=== PATIENT | male | born 1970 | race Caucasian/White ===

== ENCOUNTER → 2017-10-26 | Outpatient (CLI) | payer OTHER ==
[~2017-10-26] MED LIST: ASPIRIN81 M1 PO; CARAFATE1 G1 PO; IBU-8800 MG PO; INDERAL80 MG PO; LISINOPRIL/HCTZ1 TA3 PO; PREVACID15 MG PO; PROTONIX40 MG PO
== END | disposition home or self-care (01) ==
LOC: CT 08:00
DX: K40.90 Unilateral inguinal hernia, without obstruction or gangrene, not specified as recurrent (principal)

== ENCOUNTER → 2017-12-21 | Outpatient (CLI) | payer OTHER | END | disposition home or self-care (01) | LOC: LAB 07:57 → US 08:30 | DX: M05.741 Rheumatoid arthritis with rheumatoid factor of right hand without organ or systems involvement (principal); M05.742 Rheumatoid arthritis with rheumatoid factor of left hand without organ or systems involvement; Z90.49 Acquired absence of other specified parts of digestive tract ==

== ENCOUNTER → 2017-12-30 | Outpatient (CLI) | payer OTHER | END | disposition home or self-care (01) | LOC: MRI 08:23 | DX: K76.0 Fatty (change of) liver, not elsewhere classified (principal); K85.90 Acute pancreatitis without necrosis or infection, unspecified; Z90.49 Acquired absence of other specified parts of digestive tract ==

== ENCOUNTER → 2018-01-04 | Outpatient (CLI) | payer OTHER | END | disposition home or self-care (01) | LOC: CT 10:00 | DX: K25.9 Gastric ulcer, unspecified as acute or chronic, without hemorrhage or perforation (principal); R63.4 Abnormal weight loss; Z90.49 Acquired absence of other specified parts of digestive tract ==